=== PATIENT | female | born 2000 | race Caucasian/White ===

== ENCOUNTER 2022-09-20 16:19 | Emergency (ER) | payer MEDICAID ==
[~2022-09-20] VITALS: Ht 152.4 cm; Wt 62.6 kg
[2022-09-20 16:33] VITALS: BP 114/62
--- NOTE | 2022-09-20 16:35 | NUR ---
HEADACHE, NAUSEA, "SLEEPINESS" X 1 WEEK S/P HEAD INJURY
[2022-09-20] MEDS ORDERED: BUTA1CAP46 PO (17:07)
--- NOTE | 2022-09-20 17:17 | NUR ---
SEEN AND EVALUATED BY YESIKA ALVAREZ. D/C HOME IN STABLE CONDITION.
== END 2022-09-20 17:18 | disposition home or self-care (01) ==
LOC: ER 16:40
DX: S40.022A Contusion of left upper arm, initial encounter (principal); S80.01XA Contusion of right knee, initial encounter; R51.9 Headache, unspecified; F07.81 Postconcussional syndrome; H92.02 Otalgia, left ear; K01.1 Impacted teeth; W18.30XA Fall on same level, unspecified, initial encounter; Y93.89 Activity, other specified; Y92.89 Other specified places as the place of occurrence of the external cause; Y99.8 Other external cause status